=== PATIENT | male | born 1935 | race Caucasian/White ===

== ENCOUNTER 2016-12-12 06:19 | Inpatient (IN) | payer MEDICARE, OTHER ==
[~2016-12-12 06:19] MED LIST: Buffered Lidocaine 0.9% SYRIN* 5 ML/SYR SYRINGE INTRADERM ONE; celeCOXIB CAP* 200 MG PO ONE
[2016-12-12] MEDS ORDERED: ceFAZolin 2 GM PREMIX(*) 2 GM/50 ML BAG IVPB ONE (06:37)
[2016-12-12] MEDS ORDERED: Buffered Lidocaine 0.9% SYRIN* 5 ML/SYR SYRINGE ONE (06:37)
[2016-12-12] MEDS ORDERED: celeCOXIB CAP* 100 MG ONE (06:37)
[2016-12-12] MEDS ORDERED: Bacitracin IV* 50,000 UNITS INJ ONE (07:08)
[2016-12-12] MEDS ORDERED: Thrombin 5,000 UNITS* 1 APPLIC KIT - topical use - TOPICAL ONE (07:08)
[2016-12-12] MEDS ORDERED: Lidocaine 1% MPF wEPI 200,000* 30 ML SDV ONE (07:08)
[2016-12-12] MEDS ORDERED: fentaNYL* 50 MCG/ML 2 ML VIAL (100 MCG VIAL) ONE (07:41)
[2016-12-12] MEDS ORDERED: Atracurium* 10 MG/ML 10 ML VIAL ONE (07:42)
[2016-12-12] MEDS ORDERED: EPHEDrine (Pressors)* 50 MG/ML VIAL ONE (08:17)
[2016-12-12] MEDS ORDERED: Lidocaine 2% PF * 5 ML VIAL ONE (08:27)
[2016-12-12] MEDS ORDERED: Propofol* 10 MG/ML 20 ML BTL IV PUSH ONE (08:27)
[2016-12-12] MEDS ORDERED: Atropine 1MG/ML INJ* 1 ML VIAL ONE (08:32)
[2016-12-12] MEDS ORDERED: fentaNYL* 50 MCG/ML 2 ML VIAL (100 MCG VIAL) IV PRN (08:51)
[2016-12-12] MEDS ORDERED: DiMENhydriNATE IV* 50 MG/ML VIAL IV PUSH PRN (08:51)
[2016-12-12] MEDS ORDERED: HYDROmorphone* 1 MG/ML 1 ML SYR IV PRN (08:51)
[2016-12-12] MEDS ORDERED: HYDROcodone/ACETAMIN 5-325 MG* 1 TAB PO PRN (08:51)
[2016-12-12] MEDS ORDERED: Ondansetron INJ* 2 MG/ML VIAL IV PRN (09:19)
[2016-12-12] MEDS ORDERED: Acetaminophen TAB* 325 MG PO PRN (09:19)
--- NOTE | 2016-12-12 10:15 | RAD ---
Indication: Lumbar laminectomy. Comparison: November 13, 2016 MRI. Technique: Prone crosstable lateral view lumbar sacral spine 0826 hours Report: Tissue retractor and linear metallic instrument at the level of the L4-L5 facet joints. Multilevel degenerative spondylosis most prominent at L4-L5 with advanced disc space narrowing. Multilevel facet joint osteoarthritis. IMPRESSION: Intraoperative control film.
[2016-12-12] MEDS: traZODone TAB* 100 MG PO SCH (20:38)
[2016-12-12] MEDS: Amitriptyline TAB* 10 MG PO SCH (20:39)
--- NOTE | 2016-12-13 07:35 | PN ---
Progress Note - Progress Note SOAP: Subjective: []POD # 1 Doing well Has ambulated,voided Legs better than pre op Objective: [] Drain output has slowed Motor intact Assessment: []Satis post op course Plan: []D/C today D/C instructions given
[2016-12-13] MEDS: Atorvastatin* 20 MG TAB PO SCH (08:56)
[2016-12-13] MEDS: Docusate CAP* 100 MG PO SCH (08:56)
[2016-12-13] MEDS: Aspirin EC Low Dose* 81 MG TAB.EC PO SCH (08:56)
[2016-12-13] MEDS: HYDROcodone/ACETAMIN 5-325 MG* 1 TAB PO PRN ×2 (12:05→16:20)
[2016-12-13] MEDS ORDERED: Zolpidem TAB* 10 MG PO PRN (17:42)
[2016-12-13] MEDS: Amitriptyline TAB* 10 MG PO SCH (21:37)
[2016-12-13] MEDS: traZODone TAB* 100 MG PO SCH (21:38)
--- NOTE | 2016-12-14 00:35 | OP ---
DATE OF OPERATION: 12/12/16 - ROOM #336 DATE OF : 39 PRIMARY SURGEON: Anjum Real MD SEWING INSPECTOR: RUPALI Glass. ANESTHESIOLOGIST: Frankie Crook MD ANESTHESIA: General. PRE-OP DIAGNOSIS: Lumbar spinal stenosis, L3-4, L4-5. POST-OP DIAGNOSIS: Lumbar spinal stenosis, L3-4, L4-5. OPERATIVE PROCEDURE: Decompressive lumbar laminectomy, L3-4, L4-5. DESCRIPTION OF PROCEDURE: After satisfactory general anesthesia was obtained, the patient was placed on the operating table in the prone position with the chest supported on the Morales frame and the back slightly flexed. The lumbar region was then clipped, prepped, and draped in a sterile manner for lumbar laminectomy and a skin incision outlined from L3 to L5. This incision was infiltrated with 1% Xylocaine with epinephrine after which it was turned down sharply to the level of the lumbar fascia. The fascia was divided along the spinous processes of L3 to L5 and the paraspinal musculature stripped away from these posterior elements bilaterally using the monopolar cautery and periosteal elevator. An intraoperative x-ray was obtained verifying proper interspace localization after which a decompression was initially carried out at the L4-5 level by removing the spinous processes of L4 as well as the superior aspect of the spinous process of L5 with a combination of the ribbon winder and Leksell rongeurs. The Midas Aiden drill was then used to thin out the remaining portion of the inferior lamina of L4 in the medial aspect of the thickened facet complex. Utilizing a Kerrison rongeur, decompression was carried superiorly until the attachment of the ligamentum flavum was taken down. The ligamentum flavum was then removed with the Kerrison as well. This was carried superiorly until a generous decompression was obtained out laterally and it was carried inferiorly until both nerve roots were free in their course. Attention was then directed to the L3-4 level where a similar decompression was carried out. The findings at this level were somewhat more severe as there was more of a component of bony facet hypertrophy with facets nearly kissing in the midline. These were thinned out, any thickened ligament flavum removed as well. At the conclusion of the decompression, both L4 nerve roots were noted to be free in their course. The wound was then thoroughly irrigated after which a drain was placed in the epidural space and tunneled out towards the left side. The fascia was then reapproximated with 0 Vicryl suture. The subcutaneous tissues closed with 3-0 Vicryl suture and the skin closed with skin clips. The estimated blood loss was less than 50 cc and the final sponge, padding, and needle counts were correct. The patient was taken to the recovery room extubated and in stable condition. [id number]/[facility] #: [id number] [facility] [place]
[2016-12-14] MEDS: HYDROcodone/ACETAMIN 5-325 MG* 1 TAB PO PRN ×2 (03:35→07:52)
[2016-12-14 07:56] VITALS: BP 115/66
--- NOTE | 2016-12-14 07:59 | PN ---
Progress Note - Progress Note SOAP: Subjective: [S/p decompressive lumbar laminectomy L3-4 and L4-5. POD #2. Feeling well this morning. Pre-op lower extremity symptoms improved. Ambulating independently. Eating, drinking and voiding without difficulty. Denies headache, fever, chills, chest pain. Pain well controlled with oral pain medications. ] Objective: [ Vital Signs: Temp Pulse Resp BP Pulse Ox 98.5 F 69 18 115/66 97 12/14/16 07:33 12/14/16 07:33 12/14/16 07:52 12/14/16 07:33 12/14/16 07:33 General: Alert and oriented. No distress. Neuro: Motor and sensory intact. Incision: Intact with gissell. No swelling. Dressing dry. YULY removed today. Extremities: Full ROM. YULY output 12/12/16 12/12/16 12/12/16 10:30 11:00 11:52 Output, YULY #1 60 30 30 12/12/16 12/12/16 12/12/16 13:26 14:00 22:00 Output, YULY #1 50 25 15 12/13/16 12/13/16 12/13/16 06:03 08:06 14:00 Output, YULY #1 0 30 20 12/13/16 12/13/16 12/13/16 18:05 19:00 22:00 Output, YULY #1 20 12 10 12/14/16 12/14/16 03:52 05:46 Output, YULY #1 1 2 ] Assessment: [Satisfactory post-op course. ] Plan: [1. Discharge home today. Discharge instructions discussed with the patient. ]
[2016-12-14] MEDS: Aspirin EC Low Dose* 81 MG TAB.EC PO SCH (08:17)
[2016-12-14] MEDS: Docusate CAP* 100 MG PO SCH (08:17)
[2016-12-14] MEDS: Atorvastatin* 20 MG TAB PO SCH (08:17)
== END 2016-12-14 09:20 | disposition home or self-care (01) | DRG 517 ==
LOC: OR 06:19 → SSU 11:26 → OBSVTOIN 12-13 11:32
PROVIDERS: ADMIT Neurological Surgery; ATTEND Neurological Surgery
PROC: 01NB0ZZ Release Lumbar Nerve, Open Approach (ICD-10-PCS; principal; 2016-12-13)
DX: M48.06 Spinal stenosis, lumbar region (principal); Z87.891 Personal history of nicotine dependence; E78.00 Pure hypercholesterolemia, unspecified; Z98.1 Arthrodesis status; Z98.52 Vasectomy status; Z80.42 Family history of malignant neoplasm of prostate; Z80.0 Family history of malignant neoplasm of digestive organs; Z82.0 Family history of epilepsy and other diseases of the nervous system
CPT/HCPCS: 72100; A9270-GY; G0378; J0461; J0690; J2001; J2704; J3010